=== PATIENT | female | born 1995 | race American Indian/Alaskan Native ===

== ENCOUNTER 2019-08-09 17:12 | Emergency (ER) | payer OTHER ==
[~2019-08-09] VITALS: Ht 236.2 cm; Wt 81.7 kg
[~2019-08-09 17:12] MED LIST: CEPHALEXIN500 MG PO; DOXYCYCLINE HY100 MG PO; HYDROCODON-ACE1 EA10 PO; IBUPROFEN600 MG PO; NORCO 5-325 TA1 EACH PO
== END 2019-08-09 19:18 | disposition home or self-care (01) ==
LOC: ED 17:12
DX: S50.12XA Contusion of left forearm, initial encounter (principal); F17.200 Nicotine dependence, unspecified, uncomplicated; Z71.6 Tobacco abuse counseling; X58.XXXA Exposure to other specified factors, initial encounter
CPT/HCPCS: 73090; 99283-25; 99406

== ENCOUNTER 2021-02-07 21:23 | Emergency (ER) | payer OTHER ==
[~2021-02-07] VITALS: Ht 160 cm; Wt 81.7 kg
== END 2021-02-07 23:24 | disposition home or self-care (01) ==
LOC: ED 21:23
DX: S40.212A Abrasion of left shoulder, initial encounter (principal); S30.810A Abrasion of lower back and pelvis, initial encounter; W22.8XXA Striking against or struck by other objects, initial encounter; F17.200 Nicotine dependence, unspecified, uncomplicated; Z88.0 Allergy status to penicillin
CPT/HCPCS: 73030; 73610; 99283-25; A9270